=== PATIENT | female | born 1990 | race Caucasian/White ===

== ENCOUNTER 2023-10-23 10:19 | Outpatient (CLI) | payer BC | END 2023-10-23 10:20 | disposition home or self-care (01) | LOC: CSHULT 10:19 | PROVIDERS: ATTEND Internal Medicine Gastroenterology | DX: K50.90 Crohn's disease, unspecified, without complications (principal); R74.01 Elevation of levels of liver transaminase levels; K90.49 Malabsorption due to intolerance, not elsewhere classified; E66.3 Overweight; E55.9 Vitamin D deficiency, unspecified; K76.0 Fatty (change of) liver, not elsewhere classified | CPT/HCPCS: 76705 ==